=== PATIENT | female | born 2000 | race African-American/Black ===

== ENCOUNTER 2020-07-09 23:18 | Emergency (ER) | payer MEDICAID ==
[~2020-07-09] VITALS: Ht 162.6 cm; Wt 50.0 kg
[2020-07-10] MEDS ORDERED: ACETAMINOPHEN 325MG TABLET PO ONE (00:45)
[2020-07-10] MEDS ORDERED: KETOROLAC 60MG/2ML VIAL IM ONE (01:15)
[2020-07-10 01:41] VITALS: BP 122/82
== END 2020-07-10 02:42 | disposition home or self-care (01) ==
LOC: ER 23:18
DX: M54.5 Low back pain (principal); M25.561 Pain in right knee; V43.62XA Car passenger injured in collision with other type car in traffic accident, initial encounter; Y93.89 Activity, other specified; Y92.488 Other paved roadways as the place of occurrence of the external cause
CPT/HCPCS: 73030; 73560; 96372; 99284; J1885

== ENCOUNTER 2023-10-19 11:13 | Emergency (ER) | payer MEDICAID ==
[~2023-10-19] VITALS: Ht 162.6 cm; Wt 51.0 kg
[2023-10-19 11:25] VITALS: O2SAT 100
[2023-10-19] MEDS ORDERED: MORPHINE SULFATE 4 MG/ML CPJ (NOT FOR IM USE) IV STA (11:40)
[2023-10-19] MEDS ORDERED: ONDANSETRON HCL 4MG/2ML INJ IV STA (11:40)
[2023-10-19] MEDS ORDERED: SODIUM CHLORIDE 0.9% 1,000 ML IV ONE (11:45)
[2023-10-19 12:44] LABS: HEMATOCRIT. 37.5 % (36.0-48.0); HEMOGLOBIN. 11.9 g/dL (12.0-16.0); MEAN CORPUSCULAR HEMOGLOBIN 28.2 pg (28.0-32.0); MEAN CORPUSCULAR HGB CONC 31.7 g/dL (31.0-37.0); MEAN CORPUSCULAR VOLUME 89.1 fL (81.0-99.0); MEAN PLATELET VOLUME 9.7 fl (7.4-10.4); PLATELET 255 x1000/uL (130-400); RED BLOOD CELL COUNT 4.21 mill/uL (4.2-5.4); RED CELL DISTRIBUTION WIDTH 14.2 % (11.6-14.6); WHITE BLOOD COUNT 7.6 x1000/uL (4.5-11.0)
[2023-10-19 12:51] LABS: DIFFERENTIAL COMMENT 1
[2023-10-19 13:11] LABS: HCG SCREEN NEGATIVE
[2023-10-19 13:22] LABS: PLATELET ESTIMATE NORMAL
[2023-10-19 13:41] LABS: ACETAMINOPHEN 4 ug/mL (10-30); ALANINE AMINOTRANSFERASE 24 IU/L (10-49); ALBUMIN 4.7 g/dL (3.2-4.8); ASPARTATE AMINOTRANSFERASE 34 IU/L (<34); BILIRUBIN TOTAL 0.6 mg/dL (0.1-1.0); CALCIUM 9.6 mg/dL (8.7-10.4); CARBON DIOXIDE 23 mEq/L (21-32); CHLORIDE 106 mEq/L (98-107); CREATININE 0.9 mg/dL (0.6-1.0); GLUCOSE 113 mg/dL (70-105); POTASSIUM 3.4 mEq/L (3.5-5.1); PROTEIN TOTAL 8.2 g/dL (6.0-8.3); SODIUM 140 mEq/L (136-145); UREA NITROGEN BLOOD 12 mg/dL (9-23)
[2023-10-19 13:44] LABS: ETHANOL BLOOD < 10 mg/dL (<10)
[2023-10-19 14:00] VITALS: BP 129/74; PULSE 71; RESP 16; TEMP 98
== END 2023-10-19 15:17 | disposition home or self-care (01) ==
LOC: ER 11:13
DX: R10.13 Epigastric pain (principal); F32.A Depression, unspecified; I10 Essential (primary) hypertension; Z98.890 Other specified postprocedural states
CPT/HCPCS: 80053; 80307; 80329; 80320; 84703; 83690; 85025; 36415; 93005; 96361; 96374; 96375; 99284; J2405; J2270; J7030; Z7610; G0480

== ENCOUNTER 2024-04-19 12:07 | Emergency (ER) | payer MEDICAID ==
[~2024-04-19] VITALS: Ht 162.6 cm; Wt 55.0 kg
[2024-04-19 12:10] VITALS: BP 103/69; PULSE 89; RESP 18; TEMP 98.1; O2SAT 100
[2024-04-19 12:34] LABS: BASOPHILS % 0.5 % (0.0-2.0); EOSINOPHILS % 0.4 % (0.0-5.0); HEMATOCRIT. 30.4 % (36.0-48.0); HEMOGLOBIN. 10.1 g/dL (12.0-16.0); LYMPHOCYTES % 16.9 % (20.0-50.0); MEAN CORPUSCULAR HGB CONC 33.4 g/dL (31.0-37.0); MEAN CORPUSCULAR VOLUME 92.9 fL (81.0-99.0); MEAN PLATELET VOLUME 8.4 fl (7.4-10.4); MONOCYTES % 4.9 % (2.0-8.0); NEUTROPHILS % 77.3 % (40.0-76.0); PLATELET 215 x1000/uL (130-400); RED BLOOD CELL COUNT 3.27 mill/uL (4.2-5.4); RED CELL DISTRIBUTION WIDTH 15.2 % (11.6-14.6); WHITE BLOOD COUNT 6.7 x1000/uL (4.5-11.0)
[2024-04-19 12:42] LABS: CHLORIDE 107 mEq/L (98-107); POTASSIUM 3.4 mEq/L (3.5-5.1); SODIUM 137 mEq/L (136-145)
[2024-04-19 12:43] LABS: CALCIUM 9.2 mg/dL (8.7-10.4); CARBON DIOXIDE 25 mEq/L (21-32)
[2024-04-19 12:48] LABS: CREATININE 0.7 mg/dL (0.6-1.0); GLUCOSE 61 mg/dL (70-105); UREA NITROGEN BLOOD 5 mg/dL (9-23)
[2024-04-19 13:01] LABS: B-HCG QUANTITATIVE 91421 mIU/mL (<3)
== END 2024-04-19 15:09 | disposition home or self-care (01) ==
LOC: ER 12:07
DX: O26.891 Other specified pregnancy related conditions, first trimester (principal); R10.2 Pelvic and perineal pain; Z3A.13 13 weeks gestation of pregnancy
CPT/HCPCS: 36415; 76805; 80048; 84702; 85025; 86850; 86900; 99284

== ENCOUNTER 2024-06-08 10:05 | Emergency (ER) | payer MEDICAID ==
[~2024-06-08] VITALS: Ht 162.6 cm; Wt 53.0 kg
[2024-06-08 10:16] VITALS: BP 111/71; PULSE 97; RESP 16; TEMP 98; O2SAT 100
[2024-06-08 11:01] LABS: BASOPHILS % 0.5 % (0.0-2.0); EOSINOPHILS % 1.6 % (0.0-5.0); HEMATOCRIT. 35.6 % (36.0-48.0); HEMOGLOBIN. 11.7 g/dL (12.0-16.0); LYMPHOCYTES % 18.3 % (20.0-50.0); MEAN CORPUSCULAR HEMOGLOBIN 31.1 pg (28.0-32.0); MEAN CORPUSCULAR HGB CONC 32.9 g/dL (31.0-37.0); MEAN CORPUSCULAR VOLUME 94.4 fL (81.0-99.0); MEAN PLATELET VOLUME 9.2 fl (7.4-10.4); MONOCYTES % 5.2 % (2.0-8.0); NEUTROPHILS % 74.4 % (40.0-76.0); PLATELET 215 x1000/uL (130-400); RED BLOOD CELL COUNT 3.77 mill/uL (4.2-5.4); RED CELL DISTRIBUTION WIDTH 13.6 % (11.6-14.6); WHITE BLOOD COUNT 7.1 x1000/uL (4.5-11.0)
[2024-06-08 11:08] LABS: CHLORIDE 105 mEq/L (98-107); POTASSIUM 3.7 mEq/L (3.5-5.1); SODIUM 134 mEq/L (136-145)
[2024-06-08 11:09] LABS: CARBON DIOXIDE 25 mEq/L (21-32)
[2024-06-08 11:10] LABS: CALCIUM 9.5 mg/dL (8.7-10.4)
[2024-06-08 11:12] LABS: CLARITY URINE CLEAR (CLEAR); COLOR URINE YELLOW (YELLOW); GLUCOSE URINE NEGATIVE (NEGATIVE); KETONES URINE NEGATIVE (NEGATIVE); LEUKOCYTE ESTERASE URINE NEGATIVE (NEGATIVE); NITRITE URINE NEGATIVE (NEGATIVE); OCCULT BLOOD URINE NEGATIVE (NEGATIVE); PH URINE >=9.0 (4.5-8.0); PROTEIN URINE NEGATIVE (NEGATIVE); SPECIFIC GRAVITY URINE 1.009 (1.005-1.030); UROBILINOGEN URINE 0.2 E.U./dL (0.2-1.0)
[2024-06-08 11:14] LABS: CREATININE 0.6 mg/dL (0.6-1.0); GLUCOSE 88 mg/dL (70-105)
[2024-06-08 11:15] LABS: UREA NITROGEN BLOOD 6 mg/dL (9-23)
[2024-06-08 11:16] LABS: ALANINE AMINOTRANSFERASE 13 IU/L (10-49); ALBUMIN 4.6 g/dL (3.2-4.8); ASPARTATE AMINOTRANSFERASE 19 IU/L (<34)
[2024-06-08 11:17] LABS: BILIRUBIN DIRECT 0.1 mg/dL (<=3.0); BILIRUBIN TOTAL 0.5 mg/dL (0.1-1.0); PROTEIN TOTAL 7.8 g/dL (6.0-8.3)
[2024-06-08 11:29] LABS: B-HCG QUANTITATIVE > 1000 mIU/mL (<3)
[2024-06-08] MEDS ORDERED: TOPUD MT (14:07)
[2024-06-08] MEDS ORDERED: LORA10TA64 MT (14:07)
== END 2024-06-08 12:25 | disposition left against medical advice (07) ==
LOC: ER 10:05
DX: S80.862A Insect bite (nonvenomous), left lower leg, initial encounter (principal); S80.861A Insect bite (nonvenomous), right lower leg, initial encounter; S60.562A Insect bite (nonvenomous) of left hand, initial encounter; S60.561A Insect bite (nonvenomous) of right hand, initial encounter; I10 Essential (primary) hypertension; W57.XXXA Bitten or stung by nonvenomous insect and other nonvenomous arthropods, initial encounter; Y93.89 Activity, other specified; Y92.89 Other specified places as the place of occurrence of the external cause; Y99.8 Other external cause status
CPT/HCPCS: 36415; 80048; 80076; 81003; 81025; 84702; 85025; 86850; 86900; 99283

== ENCOUNTER 2024-07-07 02:01 | Emergency (ER) | payer MEDICAID ==
[~2024-07-07] VITALS: Ht 175.3 cm; Wt 56.0 kg
[~2024-07-07 02:01] MED LIST: LORA10TA64 MT; TOPUD MT
[2024-07-07 02:07] VITALS: TEMP 99.1; O2SAT 100
[2024-07-07] MEDS: ONDANSETRON HCL 4MG/2ML INJ IV STA (02:07)
[2024-07-07 03:19] LABS: BASOPHILS % 0.4 % (0.0-2.0); EOSINOPHILS % 0.5 % (0.0-5.0); HEMATOCRIT. 30.8 % (36.0-48.0); HEMOGLOBIN. 10.4 g/dL (12.0-16.0); LYMPHOCYTES % 13.7 % (20.0-50.0); MEAN CORPUSCULAR HEMOGLOBIN 31.5 pg (28.0-32.0); MEAN CORPUSCULAR HGB CONC 33.6 g/dL (31.0-37.0); MEAN CORPUSCULAR VOLUME 93.8 fL (81.0-99.0); MEAN PLATELET VOLUME 9.4 fl (7.4-10.4); MONOCYTES % 4.8 % (2.0-8.0); NEUTROPHILS % 80.6 % (40.0-76.0); PLATELET 220 x1000/uL (130-400); RED BLOOD CELL COUNT 3.29 mill/uL (4.2-5.4); RED CELL DISTRIBUTION WIDTH 13.4 % (11.6-14.6); WHITE BLOOD COUNT 9.2 x1000/uL (4.5-11.0)
[2024-07-07 03:32] LABS: CHLORIDE 107 mEq/L (98-107); POTASSIUM 3.6 mEq/L (3.5-5.1); SODIUM 139 mEq/L (136-145)
[2024-07-07 03:33] LABS: CARBON DIOXIDE 24 mEq/L (21-32); HCG SCREEN POSITIVE
[2024-07-07 03:38] LABS: CREATININE 0.7 mg/dL (0.6-1.0); GLUCOSE 78 mg/dL (70-105); UREA NITROGEN BLOOD 10 mg/dL (9-23)
[2024-07-07 03:40] LABS: ACETAMINOPHEN < 2 ug/mL (10-30)
[2024-07-07 03:55] LABS: ETHANOL BLOOD < 10 mg/dL (<10)
[2024-07-07 05:03] LABS: B-HCG QUANTITATIVE 29109 mIU/mL (<3)
[2024-07-07 07:03] VITALS: BP 104/61; PULSE 82; RESP 18; O2SAT 99
[2024-07-07 07:26] LABS: CLARITY URINE CLEAR (CLEAR); COLOR URINE YELLOW (YELLOW); GLUCOSE URINE NEGATIVE (NEGATIVE); KETONES URINE 2+ (NEGATIVE); LEUKOCYTE ESTERASE URINE 2+ (NEGATIVE); NITRITE URINE NEGATIVE (NEGATIVE); OCCULT BLOOD URINE NEGATIVE (NEGATIVE); PROTEIN URINE NEGATIVE (NEGATIVE); SPECIFIC GRAVITY URINE 1.016 (1.005-1.030); UROBILINOGEN URINE 0.2 E.U./dL (0.2-1.0)
[2024-07-07 07:43] LABS: *AMPHETAMINES SCREEN URINE NEGATIVE (NEGATIVE); *BARBITURATES SCREEN URINE NEGATIVE (NEGATIVE); *BENZODIAZEPINES SCREEN URINE NEGATIVE (NEGATIVE); *COCAINE SCREEN URINE NEGATIVE (NEGATIVE); CANNABINOID URINE SCREEN PRESUMPTIVE POSITIVE (NEGATIVE); ECSTASY MDMA SCREEN URINE NEGATIVE (NEGATIVE); METHADONE URINE SCREEN NEGATIVE (NEGATIVE); OPIATES URINE SCREEN NEGATIVE (NEGATIVE); PHENCYCLIDINE URINE SCREEN NEGATIVE (NEGATIVE)
[2024-07-07 07:45] LABS: BACTERIA URINE 1+; RBC URINE 0-2 /hpf (0-2); SQUAMOUS EPITHELIAL CELL URINE 1+ /lpf (RARE/1+); YEAST URINE NONE SEEN
== END 2024-07-07 14:30 | disposition home or self-care (01) ==
LOC: ER 02:01
DX: O9A.212 Injury, poisoning and certain other consequences of external causes complicating pregnancy, second trimester (principal); T40.411A Poisoning by fentanyl or fentanyl analogs, accidental (unintentional), initial encounter; I49.9 Cardiac arrhythmia, unspecified; Z3A.24 24 weeks gestation of pregnancy; Y92.9 Unspecified place or not applicable
CPT/HCPCS: 80305; 80048; 81003; 80307; 80329; 80320; 84703; 84702; 83690; 85025; 36415; 76805; 93005; 96374; 99285; J2405; Z7610; G0480